=== PATIENT | female | born 2000 | race Caucasian/White ===

== ENCOUNTER 2019-09-11 02:56 | Emergency (ER) | payer BC ==
--- NOTE | 2019-09-11 04:37 | NUR ---
Please paper chart for notes/charting from time of check-in until 5.
--- NOTE | 2019-09-11 05:16 | NUR ---
Rounded with pt. Pt alert and resting on gurney. VSS. Pt updated on wait for US and blood work. No needs at this time.
[2019-09-11 05:37] LABS: MICROSCOPIC INDICATED
[2019-09-11 05:41] LABS: CULTURE INDICATED? YES
[2019-09-11 06:40] VITALS: BP 112/72
--- NOTE | 2019-09-11 06:40 | NUR ---
Spoke with MD and then rounded with pt. Waiting for HCG quant to result. Pt updated. No needs at this time.VSS.
--- NOTE | 2019-09-11 06:58 | NUR ---
Pt d/c'd to self care. Pt alert, oriented and ambulatory at time of d/c. Pt educated on prescriptions follow-up, S/Sx to return, OTC meds, home care and follow-up. PT VU. Pt ambulatory out of ER.
[2019-09-11 08:23] LABS: ANION GAP 7 mmol/L (5-15); CHLORIDE 108 mmol/L (98-107)
[2019-09-11 10:39] LABS: MEAN CORPUSCULAR VOLUME 90.4 fL (80-100); RED BLOOD COUNT 4.71 x10^6/uL (3.82-5.3)
[2019-09-11 10:40] LABS: MEAN CORPUSCULAR HEMOGLOBIN 30.1 pg (27.0-34.8); MEAN CORPUSCULAR HGB CONC 33.3 g/dL (32.4-35.8); PLATELET COUNT 293 x10^3/uL (130-400); RED CELL DISTRIBUTION WIDTH 13.2 % (9.6-15.2)
[2019-09-11 10:41] LABS: BASOPHILS % (AUTO) 1 % (0-1); LYMPHOCYTES # (AUTO) 2.45 x10^3/uL (1-3.4); LYMPHOCYTES % (AUTO) 32 % (22-44); MEAN PLATELET VOLUME 7.6 fL (7.4-10.4); MONOCYTES # (AUTO) 0.55 x10^3/uL (0.2-0.8); MONOCYTES % (AUTO) 7 % (2-9); NEUTROPHILS # (AUTO) 4.47 x10^3/uL (1.8-6.8); NEUTROPHILS % (AUTO) 59 % (42-75)
[2019-09-11 10:42] LABS: BASOPHILS # (AUTO) 0.05 x10^3/uL (0-0.1); EOSINOPHILS # (AUTO) 0.12 x10^3/uL (0-0.4); EOSINOPHILS % (AUTO) 1 % (1-7); MD NO
== END 2019-09-11 07:00 | disposition home or self-care (01) ==
LOC: ED 03:17
DX: O03.9 Complete or unspecified spontaneous abortion without complication (principal); O23.11 Infections of bladder in pregnancy, first trimester
CPT/HCPCS: 36415; 76856; 80048; 81001; 84702; 85025; 86901; 87077; 87086; 87186; 99284

== ENCOUNTER 2019-09-12 14:45 | Emergency (ER) | payer BC ==
[~2019-09-12] VITALS: Ht 172.7 cm; Wt 68.7 kg
--- NOTE | 2019-09-12 15:38 | NUR ---
Luis Felipe CANO at bedside performing assessment and discussing plan of care. NAD, denies additional needs, WCTM.
--- NOTE | 2019-09-12 15:38 | NUR ---
Pt resting in gurney, changed into gown, given call light, significant other at bedside, NAD, denies additional needs, WCTM.
[2019-09-12] MEDS ORDERED: HYDROmorphone 1 MG/ML, 1ML INJ ONE (15:44)
[2019-09-12] MEDS ORDERED: HYDROmorphone 1 MG/ML, 1ML INJ IM PRN (16:00)
[2019-09-12 16:13] LABS: BASOPHILS # (AUTO) 0.04 x10^3/uL (0-0.1); BASOPHILS % (AUTO) 1 % (0-1); EOSINOPHILS % (AUTO) 2 % (1-7); LYMPHOCYTES # (AUTO) 1.57 x10^3/uL (1-3.4); LYMPHOCYTES % (AUTO) 18 % (22-44); MD NO; MEAN CORPUSCULAR HEMOGLOBIN 30.4 pg (27.0-34.8); MEAN CORPUSCULAR HGB CONC 33.6 g/dL (32.4-35.8); MEAN CORPUSCULAR VOLUME 90.4 fL (80-100); MEAN PLATELET VOLUME 7.9 fL (7.4-10.4); MONOCYTES # (AUTO) 0.41 x10^3/uL (0.2-0.8); MONOCYTES % (AUTO) 5 % (2-9); NEUTROPHILS # (AUTO) 6.47 x10^3/uL (1.8-6.8); NEUTROPHILS % (AUTO) 74 % (42-75); PLATELET COUNT 276 x10^3/uL (130-400); RED BLOOD COUNT 4.43 x10^6/uL (3.82-5.3); RED CELL DISTRIBUTION WIDTH 13.1 % (9.6-15.2)
--- NOTE | 2019-09-12 16:13 | NUR ---
Pt to US in NAD
[2019-09-12 17:40] VITALS: BP 109/67
== END 2019-09-12 17:43 | disposition home or self-care (01) ==
LOC: ED 17:38
DX: O03.9 Complete or unspecified spontaneous abortion without complication (principal)
CPT/HCPCS: 36415; 76830; 85025; 96372; 99284; J1170